=== PATIENT | male | born 1980 | race Caucasian/White ===

== ENCOUNTER 2022-03-15 06:13 | Day surgery (SDC) | payer OTHER ==
[2022-03-07 17:03] LABS: BASOPHILS # (AUTO) 0.1 X10'3 (0-0.2); BASOPHILS % (AUTO) 0.9 % (0-1); EOSINOPHILS # (AUTO) 0.5 X10'3 (0-0.9); EOSINOPHILS % (AUTO) 5.5 % (0-6); LYMPHOCYTES # (AUTO) 2.7 X10'3 (1.1-4.8); LYMPHOCYTES % (AUTO) 32.4 % (21-51); MEAN CORPUSCULAR HEMOGLOBIN 31.5 PG (27.0-31.0); MEAN CORPUSCULAR HGB CONC 33.9 g/dL (33.0-36.5); MEAN CORPUSCULAR VOLUME 92.8 FL (78-98); MEAN PLATELET VOLUME 9.3 FL (7.4-10.4); MONOCYTES # (AUTO) 0.8 X10'3 (0-0.9); MONOCYTES % (AUTO) 9.3 % (2-12); NEUTROPHILS # (AUTO) 4.3 X10'3 (1.8-7.7); NEUTROPHILS % (AUTO) 51.9 % (42-75); PRE OP HEMOGLOBIN 14.9 g/dL (14.0-17.9); PRE OP PLATELET COUNT 254 X10'3 (140-440); RED BLOOD COUNT 4.75 X10'6 (4.70-6.10)
[2022-03-07 17:14] LABS: ALBUMIN 4.2 G/DL (3.4-5.0); ALBUMIN/GLOBULIN RATIO 1.4 (1.1-1.5); ALKALINE PHOSPHATASE 109 IU/L (46-116); BLOOD UREA NITROGEN 12 MG/DL (7-18); BUN/CREATININE RATIO 12.9 (5.4-32.0); CHLORIDE 105 MMOL/L (99-107); CREATININE 0.93 MG/DL (0.60-1.10); PRE OP ALT 33 U/L (30-65); PRE OP ANION GAP 8 (8-16); PRE OP AST 22 U/L (10-37); PRE OP BILIRUB, TOTAL 0.2 MG/DL (0.0-1.0); PRE OP GLUCOSE 87 MG/DL (70-104); PRE OP POTASSIUM 3.8 MMOL/L (3.4-5.1); PRE OP SODIUM 140 MMOL/L (135-145); TOTAL CARBON DIOXIDE 26.6 MMOL/L (24-32); TOTAL PROTEIN 7.1 G/DL (6.4-8.2); eGFR 89 ML/MIN
[2022-03-15] VITALS (10 sets, daily range): BP systolic 106–127; BP diastolic 51–78
[~2022-03-15] VITALS: Ht 195.6 cm; Wt 94.8 kg
[~2022-03-15 06:13] MED LIST: NO HOME MEDS; acetaminophen 325mg tablet PO ONE; ceFAZolin inj. 2,000 MG in dextrose 5%-water 100 ML IV ONE; celeCOXIB 100mg capsule PO ONE; famotidine 20mg tablet PO ONE; gabapentin 300mg capsule PO ONE; metoclopramide 5 mg/ml inj IV ONE; oxyCODONE SR 10mg (sust. release) tab -2 tabs (20mg) PO ONE; ringers solution, lacted 1,000 ML IV SCH; tranexamic acid inj. 1,000 MG in normal saline IV soln 100ML IV ONE; vancomycin 1,500 MG in NS 300ml IV soln IV ONE
--- NOTE | 2022-03-15 06:20 | NUR ---
CSM: PEDAL PULSES PRESENT AND MARKED, PT DID WATCH THE VIDEO. KAILYNPILOLA MARI ISMICHELLE AND PT EDUCATED ON THE USE OF THE INCENTIVE SPIROMETER. Addendum: 03/15/22 at 1153 by Saige Le RN, RN Amended: Links added.
[2022-03-15] MEDS ORDERED: HYDROmorphone inj. 0.5 MG/0.5 ML DISP.SYRIN IV PRN (07:25)
[2022-03-15] MEDS ORDERED: diphenhydrAMINE 25mg capsule PO PRN ×2 (07:25)
[2022-03-15] MEDS ORDERED: acetaminophen 325mg tablet PO PRN (07:25)
[2022-03-15] MEDS ORDERED: magnesium hydroxide 30ml (MOM) UD suspension PO PRN (07:25)
[2022-03-15] MEDS ORDERED: HYDROcodone/acetaminophen 10/325mg tab PO PRN ×2 (07:25)
[2022-03-15] MEDS ORDERED: naloxone 0.4 mg/ml inj IV PRN (07:25)
[2022-03-15] MEDS ORDERED: potassium cl 20mEq in 1/2 NS 1,000 ML IV SCH (07:25)
[2022-03-15] MEDS ORDERED: bisacodyl 10mg suppository rectal RC PRN (07:25)
[2022-03-15] MEDS ORDERED: HYDROmorphone 1 mg/ml syringe IV PRN (07:25)
[2022-03-15] MEDS ORDERED: ondansetron/PF 4mg/2ml inj IV PRN ×2 (07:25→10:35)
[2022-03-15] MEDS ORDERED: ceFAZolin inj. 2,000 MG in dextrose 5%-water 100 ML IV ONE (07:30)
[2022-03-15] MEDS ORDERED: vancomycin 1,000mg inj ONE (09:31)
[2022-03-15] MEDS ORDERED: cloNIDine hcl/PF 100mcg/ml inj ONE (09:31)
[2022-03-15] MEDS ORDERED: epiNEPHrine 1 mg/ml inj ONE (09:31)
[2022-03-15] MEDS ORDERED: ROPIVAcaine 0.5% (5mg/ml) 30ml vial ONE ×2 (09:31→11:19)
[2022-03-15] MEDS ORDERED: tobramycin 40mg/ml inj ONE (09:31)
[2022-03-15] MEDS ORDERED: fentaNYL/PF 50MCG/1 ML 2ML syringe ONE (09:50)
[2022-03-15] MEDS ORDERED: MIDAZolam 1mg/ml 10ml vial ONE (09:50)
[2022-03-15] MEDS ORDERED: ketorolac trometh. 30mg/ml inj. ONE (10:14)
[2022-03-15] MEDS ORDERED: meperidine/PF 25mg/ml syringe IV PRN ×3 (10:35)
[2022-03-15] MEDS ORDERED: proCHLORperazine 10 MG/2 ml inj IV PRN (10:35)
[2022-03-15] MEDS ORDERED: ringers solution, lacted 1,000 ML IV SCH (10:35)
[2022-03-15] MEDS ORDERED: morphine 4 MG/ML inj SYRINge IV PRN (10:35)
[2022-03-15] MEDS ORDERED: morphine 2 MG/ML inj. syringe IV PRN (10:35)
[2022-03-15] MEDS ORDERED: ROPIVAcaine 0.2%/PF PUMP/bolus 545 ML ADDCANAL SCH (10:35)
[2022-03-15] MEDS ORDERED: propofol inj 20 ML IV ONE ×2 (10:57)
--- NOTE | 2022-03-15 11:51 | NUR ---
Received from OR via BED, accompanied by Anesthesiologist DR OGDEN and report given by Anesthesiologist AND DOCUMENT MANAGEMENT TECHNICIAN. PT DROWSY, DENIES PAIN, RIGHT LEG W/LEG WRAP, POWDER PACK, ABDIRIZAK DRAIN/DRSG CDI. PT ABLE TO MOVE BILAT LE'S. Addendum: 03/15/22 at 1239 by July Anand RN Amended: Links added.
--- NOTE | 2022-03-15 13:00 | NUR ---
PT PASSED QUAD SETS, LEG LIFTS, PT PAGED AND CAME AND FOR EVALUATION, PT PASSED PT TO GO HOME. PT AWAITING DR CHANG FOR DISCHARGE TO HOME. Addendum: 03/15/22 at 1342 by July Anand RN Amended: Links added.
[2022-03-15] MEDS ORDERED: tranexamic acid inj. 950 MG in normal saline 100ml IV soln 90.5 ML IV ONE (15:00)
--- NOTE | 2022-03-15 15:01 | NUR ---
PT REMAINS COMFORTABLE, ABLE TO AMBULATE SAFELY W/WALKER, VOIDED, MET P.T.'S AND PACU CRITERIA FOR D/C. D/C INSTRUCTIONS GIVEN AND GONE OVER W/PT WHO VERBALIZED AND DEMONSTRATED UNDERSTANDING, INCLUDING ON-Q AND ABDIRIZAK GEORGES. PT D/CD TO HOME VIA W/C TO PRIVATE VEHICLE W/O INCIDENT. Addendum: 03/15/22 at 1525 by July Anand RN Amended: Links added.
[2022-03-15] MEDS ORDERED: VANCOMYCIN 1,500MG inj. 1,500 MG in normal saline 500ml IV soln 300 ML IV ONE (20:00)
[2022-03-15] MEDS ORDERED: ascorbic acid 500mg tablet PO SCH (20:00)
[2022-03-15] MEDS ORDERED: gabapentin 300mg capsule PO SCH (21:00)
[2022-03-15] MEDS ORDERED: sennosides 8.6mg tablet PO SCH (21:00)
[2022-03-16] MEDS ORDERED: multivitamins, therapeutics tablet PO SCH (08:00)
[2022-03-16] MEDS ORDERED: aspirin 325mg tablet PO SCH (08:30)
[2022-03-16] MEDS ORDERED: celeCOXIB 100mg capsule PO SCH (20:00)
== END 2022-03-15 15:01 | disposition home or self-care (01) ==
LOC: PAS 06:13
PROVIDERS: ATTEND Orthopaedic Surgery
DX: M17.11 Unilateral primary osteoarthritis, right knee (principal); M21.161 Varus deformity, not elsewhere classified, right knee; F17.200 Nicotine dependence, unspecified, uncomplicated; Z79.899 Other long term (current) drug therapy; Z98.890 Other specified postprocedural states; Z88.0 Allergy status to penicillin; Z88.8 Allergy status to other drugs, medicaments and biological substances; G89.18 Other acute postprocedural pain; Z79.82 Long term (current) use of aspirin
CPT/HCPCS: 27447; 36415; 64447; 73560; 76942; 80053; 82948; 85025; 86885; 86900; 86901; 87081; 97116; 97161; C1713; C1776; J0171; J0735; J1885; J2250; J2704; J2765; J2795; J3010; J3370; J3490; J7030; J7040; J7120; Z7506; Z7508; Z7512; A4215; A7000; J0690; J3260; J7060